=== PATIENT | male | born 1995 | race Two or more races ===

== ENCOUNTER 2016-06-03 02:36 | Emergency (ER) | payer SELFPAY ==
[2016-06-03 02:46] VITALS: BP 112/67; PULSE 76; TEMP 97.9; BMI 25.1
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
== END 2016-06-03 03:59 | disposition home or self-care (01) ==
LOC: JER 02:36
PROC: 0HQ0XZZ Repair Scalp Skin, External Approach (ICD-10-PCS; principal; 2016-06-03)
DX: S01.01XA Laceration without foreign body of scalp, initial encounter (principal); S09.90XA Unspecified injury of head, initial encounter; W22.8XXA Striking against or struck by other objects, initial encounter; Y93.9 Activity, unspecified; Y92.9 Unspecified place or not applicable
CPT/HCPCS: 12002-25; 99281-25